=== PATIENT | female | born 1985 ===

== ENCOUNTER → 2024-04-03 | Day surgery (SDC) | payer OTHER ==
[2024-03-28 08:38] LABS: HEMATOCRIT 36.6 % (36.0-45.00); HEMOGLOBIN 12.8 g/dL (12.0-15.00); MEAN CELL VOLUME 89.6 fL (80.00-100.00); MEAN CORPUSCULAR HEMOGLOBIN 31.2 pg (27.00-32.0); MEAN CORPUSCULAR HGB CONC 34.9 g/dl (32.0-36.0); PLATELET COUNT 317 K/uL (150-450); RED BLOOD COUNT 4.08 M/uL (4.00-6.00); RED CELL DISTRIBUTION WIDTH 13.1 % (11.5-14.5)
[2024-03-28 09:08] LABS: INR 0.98; PARTIAL THROMBOPLASTIN TIME 28.8 SECONDS (22.0-34.0); PROTHROMBIN TIME 10.7 SECONDS (9.0-11.5)
[2024-03-28 09:41] LABS: RH POSITIVE
[~2024-04-03] MED LIST: KETOROLAC TROMETHAMINE 30 MG VIAL IV ONE; MORPHINE SULFATE 4 MG/ML VIAL IV ONE; MORPHINE SULFATE 4 MG/ML VIAL IV PRN; ONDANSETRON HCL 2 MG/ML VIAL IV ONE; POVIDONE-IODINE 118 ML BOTT TOP SCH; ZYRTEC10 M3 PO
== END | disposition home or self-care (01) ==
LOC: ADM 03-28 07:30 → CIR.AMB 05:30
PROVIDERS: ATTEND Obstetrics & Gynecology
DX: R10.2 Pelvic and perineal pain (principal); Z88.6 Allergy status to analgesic agent